=== PATIENT | female | born 1985 | race Caucasian/White ===

== ENCOUNTER → 2022-02-19 08:00 | Outpatient (CLI) | payer OTHER, SELFPAY | PROVIDERS: Referring Provider Obstetrics & Gynecology; Visit Provider Obstetrics & Gynecology | DX: N63.0 Unspecified lump in unspecified breast (principal); Z53.20 Procedure and treatment not carried out because of patient's decision for unspecified reasons ==

== ENCOUNTER → 2022-03-16 13:07 | Outpatient (CLI) | payer OTHER, SELFPAY ==
--- NOTE | 2022-03-16 | DI.MG.S_ITS ---
BILATERAL DIGITAL DIAGNOSTIC MAMMOGRAM 3D/2D: 03/16/2022 CLINICAL: Baseline. Breast lump. No prior exams were available for comparison. There are scattered fibroglandular elements in both breasts. No significant masses, calcifications, or other findings are seen in either breast. IMPRESSION: INCOMPLETE: NEEDS ADDITIONAL IMAGING EVALUATION There is no abnormality seen in the right breast to correspond with the palpable abnormality in the posterior depth in the inferior aspect, however, ultrasound is recommended. Based on the Tyrer Cuzick model (a risk assessment model) the patient's lifetime risk is 9.6% and her 10 year risk is 0.7%. According to the ACR, ACS, and NCCN guidelines, an annual breast MRI exam along with mammogram is recommended if the patient's lifetime risk is 20% or greater. This exam was interpreted at Station ID: [id number]. NOTE: For mammograms, a report in lay terms will be sent to the patient. Approximately 15% of breast malignancies will not be visualized mammographically. In the management of a palpable breast mass, a negative mammogram must not discourage biopsy of a clinically suspicious lesion. Electronically Signed By: Grupo andres/[email or web address]:03/16/2022 15:06:04 ACR BI-RADS Category 0: Incomplete [id number]
--- NOTE | 2022-03-16 | DI.US.S_ITS ---
LIMITED ULTRASOUND OF RIGHT BREAST: 03/16/2022 CLINICAL: Palpable right breast lump. Comparison is made to exam dated: 03/16/2022 mammogram - [facility]. Real-time ultrasound of the right breast 6 o'clock region was performed. Jaquez scale images of the real-time examination were reviewed. No significant abnormalities were seen sonographically in the right breast. IMPRESSION: NEGATIVE There is no sonographic evidence of malignancy. There is no abnormality seen in the right breast to correspond with the palpable abnormality, however, clinical followup is recommended. A 5 year screening mammogram is recommended. This exam was interpreted at Station ID: [id number]. Electronically Signed By: Grupo andres/[email or web address]:03/16/2022 15:09:30 letter sent: Clinical Evaluation Ultrasound BI-RADS: 1 Negative
== END ==
PROVIDERS: Referring Provider Obstetrics & Gynecology; Visit Provider Obstetrics & Gynecology
DX: N63.10 Unspecified lump in the right breast, unspecified quadrant (principal)
CPT/HCPCS: 76642; 77066; G0279